=== PATIENT | male | born 1975 | race Caucasian/White ===

== ENCOUNTER 2025-06-23 03:20 | Emergency (ER) | payer MEDICAID ==
[~2025-06-23] VITALS: Ht 182.9 cm; Wt 100.0 kg
[~2025-06-23 03:20] MED LIST: AMIT-260 PO; GABA-1181 PO; OMEP-148 PO
[2025-06-23 04:21] VITALS: BP 124/104; PULSE 120; RESP 16; TEMP 98.6; O2SAT 100
[2025-06-23 04:37] LABS: CALCIUM, TOTAL 8.9 mg/dL (8.8-10.5); CREATININE 1.01 mg/dL (0.60-1.30); GLOMERULAR FILTR. RATE CALC > 60 mL/min (>60); GLUCOSE,RANDOM 138 mg/dL (70-110); PLATELET COUNT (AUTO) 260 K/uL (150-450); RED BLOOD CELL COUNT(AUTO) 6.08 MIL/uL (4.50-5.90); RED CELL DISTRIBUTION WIDTH 16.0 % (11.5-14.5); SODIUM SERUM 137 mmol/L (136-145); UREA NITROGEN, BLOOD 10 mg/dL (7-18); WHITE BLOOD COUNT (AUTO) 11.2 K/uL (4.5-11.0)
[2025-06-23 07:48] LABS: COVID AG,FIA SOURCE NASAL SWAB
[2025-06-23 08:06] LABS: SARS-COV2 (COVID) ANTIGEN,FIA Negative (Negative)
== END 2025-06-23 05:37 | disposition home or self-care (01) ==
LOC: EMS 03:21
DX: F32.9 Major depressive disorder, single episode, unspecified (principal); F41.9 Anxiety disorder, unspecified; F32.A Depression, unspecified; F12.90 Cannabis use, unspecified, uncomplicated; Z79.899 Other long term (current) drug therapy; Z20.822 Contact with and (suspected) exposure to COVID-19
CPT/HCPCS: 99285; 87426; 80048; 85025; 36415; G0480